=== PATIENT | male | born 2000 | race Caucasian/White ===

== ENCOUNTER 2024-05-13 13:45 | Emergency (ER) | payer OTHER, SELFPAY ==
[2024-05-13 14:05] VITALS: BP 151/86; PULSE 72; RESP 16; TEMP 37.1; O2SAT 100; BMI 31.1
--- NOTE | 2024-05-13 16:31 | ED_ITS ---
HPI - Syncope <Sterling Heart PA-C - Last Filed: 05/13/24 18:10> General Chief Complaint: Dizziness Stated Complaint: heat illness Time Seen by Provider: 05/13/24 16:18 Source: patient Mode of arrival: Ambulatory History of Present Illness HPI narrative: This is a 23-year-old male presents emergency department due to heat related complaints. Patient reports feeling hot and sweaty, mildly confused, and had a syncopal episode. He states he is felt dehydrated. He states he has been taking in an adequate amount of liquid intake. Denies any current chest pain or shortness of breath fevers or abdominal pain. Reports some weakness as well as lightheadedness. Does not report any significant pain anywhere. Related Data Allergies Allergy/AdvReac Type Severity Reaction Status Date / Time No Known Drug Allergies Allergy Verified 05/13/24 14:09 Review of Systems <MARA Brennan Last Filed: 05/13/24 18:10> Review of Systems Narrative: GENERAL: Denies chills, fatigue, malaise, fever, sweats. HEENT: Denies sinus pain, ear pain, sore throat, difficulty swallowing, dizziness. RESPIRATORY: Denies dyspnea, cough, wheezing, hemoptysis, sputum. CARDIOVASCULAR: Denies chest pain, palpitations, orthopnea, edema, GASTROINTESTINAL: Denies nausea, vomiting, abdominal pain, diarrhea, constipation, melena. : Denies dysuria, frequency, incontinence, hematuria, urinary retention. MUSCULOSKELETAL: denies weakness, joint pain, or bony pain SKIN: Denies rash, skin lesions, or other NEUROLOGIC: Reports weakness, denies headache, numbness, change in speech, confusion, seizures, incoordination. PSYCHIATRIC: No concerning psychosocial issues. 12 point review of systems is negative except for those stated above Patient History <MARA Brennan Last Filed: 05/13/24 18:10> Social History Smoking Status: Never smoker Smoking Status: Never smoker Substance Use Type: marijuana Exam <MARA Brennan Last Filed: 05/13/24 18:10> Narrative Exam Narrative: GENERAL: Well-developed patient, in mild distress. HEAD: Atraumatic. Normocephalic. EYES: Pupils equal round and reactive. Extraocular motions intact. No scleral icterus. No injection or drainage. ENT: Nose without bleeding, purulent drainage. Throat without erythema, tonsillar hypertrophy or exudate. Airway patent. NECK: Trachea midline. Non tender EXTREMITIES: No edema or joint tenderness. NEURO: AOx3. SKIN: No rash or erythema of visible areas Initial Vital Signs Initial Vital Signs: Vital Signs Temperature 98.7 F 05/13/24 14:05 Pulse Rate 72 05/13/24 14:05 Respiratory Rate 16 05/13/24 14:05 Blood Pressure 151/86 H 05/13/24 14:05 Pulse Oximetry 100 05/13/24 14:05 Oxygen Delivery Method Room Air 05/13/24 14:05 <Suha Costello DO - Last Filed: 05/14/24 10:21> Initial Vital Signs Initial Vital Signs: Vital Signs Temperature 98.7 F 05/13/24 14:05 Pulse Rate 72 05/13/24 14:05 Respiratory Rate 16 05/13/24 14:05 Blood Pressure 151/86 H 05/13/24 14:05 Pulse Oximetry 100 05/13/24 14:05 Oxygen Delivery Method Room Air 05/13/24 14:05 Course <Sterling Heart PA-C - Last Filed: 05/13/24 18:10> Orders Ordered: Discontinued Medications Sodium Chloride (Normal Saline 0.9%) 1,000 mls @ 1,000 mls/hr IV BOLUS ONE Stop: 05/13/24 17:35 Last Infusion: 05/13/24 18:09 Dose: Infused Documented By: Admin: 05/13/24 17:16 Dose: 1,000 mls/hr Documented By: RB Vital Signs Vital signs: Vital Signs - 8 hr 05/13/24 14:05 Temperature 98.7 F Pulse Rate 72 Respiratory Rate 16 Blood Pressure 151/86 H Pulse Oximetry 100 Oxygen Delivery Method Room Air <Suha Costello DO - Last Filed: 05/14/24 10:21> Orders Ordered: Discontinued Medications Sodium Chloride (Normal Saline 0.9%) 1,000 mls @ 1,000 mls/hr IV BOLUS ONE Stop: 05/13/24 17:35 Last Infusion: 05/13/24 18:09 Dose: Infused Documented By: Admin: 05/13/24 17:16 Dose: 1,000 mls/hr Documented By: RB Vital Signs Vital signs: Vital Signs - 8 hr 05/13/24 14:05 Temperature 98.7 F Pulse Rate 72 Respiratory Rate 16 Blood Pressure 151/86 H Pulse Oximetry 100 Oxygen Delivery Method Room Air MDM - Syncope <Sterling Heart PA-C - Last Filed: 05/13/24 18:10> Lab Data 05/13/24 17:00 05/13/24 17:00 Labs: Lab Results 05/13/24 Range/Units 17:00 WBC 5.2 (4.5-11.0) X10^3/uL RBC 4.54 (4.5-5.9) X10^6/uL Hgb 13.4 L (13.5-17.5) g/dL Hct 39.1 L (41-53) % MCV 86.1 (80-100) fL MCH 29.6 (26-34) PG MCHC 34.3 (30-36) % RDW 12.5 (11.6-14.8) % Plt Count 187 (150-400) X10^3/uL Neut % (Auto) 58.6 (50-75) % Lymph % (Auto) 30.7 (25-40) % Kinney % (Auto) 8.8 (3-14) % Eos % (Auto) 0.7 L (2-4) % Baso % (Auto) 1.2 (0-2) % Neut # (Auto) 3000 (2609-9705) /uL Lymph # (Auto) 1600 (9166-8720) /uL Kinney # (Auto) 500 (0-900) /uL Eos # (Auto) 0 (0-450) /uL Baso # (Auto) 100 (0-100) /uL Sodium 139 (137-145) mmol/L Potassium 3.8 (3.4-5.1) mmol/L Chloride 107 (98-107) mmol/L Carbon Dioxide 25 (22-32) mmol/L BUN 12 (9-20) mg/dL Creatinine 0.92 (0.66-1.25) mg/dL Estimated GFR > 60 (>60) mL/min BUN/Creatinine Ratio 13.0 (6-22) Glucose 81 (70-100) mg/dL Calcium 9.4 (8.4-10.2) mg/dL Total Bilirubin 0.7 (0.2-1.3) mg/dL AST 40 (17-59) IU/L ALT 32 (<50) IU/L Alkaline Phosphatase 48 (38-126) U/L Total Protein 7.8 (6.3-8.2) g/dL Albumin 4.8 (3.5-5.0) g/dL Globulin 3.0 (1.7-4.1) g/dL Albumin/Globulin Ratio 1.6 (1.0-2.8) MDM Narrative Medical decision making narrative: ED course: This is a 23-year-old male presents to the emergency department due to mild heat exhaustion. His lab work was unremarkable, no electrolyte abnormalities. Patient was given a L of fluids. He had not present with any signs or symptoms of heat stroke. Temperature was within normal limits upon arrival to the emergency department. CC: Heat exhaustion Complicating co-morbidities: None Data collected from: Previous notes Medical records reviewed: Patient was not been to this emergency department the past Differential considered, but not limited to: He was often, he was stroke, electrolyte abnormality Exam documented above, pertinent findings include: No remarkable findings Lab Test results independently reviewed as above. Pertinent findings: CBC and CMP unremarkable Imaging studies independently reviewed: None obtained Scores Used: None MIPS Elements: None Consultations: None Treatments: L of fluids Re-evaluations: None Discussion: Discussed plan with the patient was comfortable with the plan Diagnosis: Heat exhaustion Disposition: see below, along with detailed discharge instructions that have been reviewed with patient as well as indications for ED re-evaluation and additional outpatient follow up <Suha Costello, - Last Filed: 05/14/24 10:21> Lab Data Labs: Lab Results 05/13/24 Range/Units 17:00 WBC 5.2 (4.5-11.0) X10^3/uL RBC 4.54 (4.5-5.9) X10^6/uL Hgb 13.4 L (13.5-17.5) g/dL Hct 39.1 L (41-53) % MCV 86.1 (80-100) fL MCH 29.6 (26-34) PG MCHC 34.3 (30-36) % RDW 12.5 (11.6-14.8) % Plt Count 187 (150-400) X10^3/uL Neut % (Auto) 58.6 (50-75) % Lymph % (Auto) 30.7 (25-40) % Kinney % (Auto) 8.8 (3-14) % Eos % (Auto) 0.7 L (2-4) % Baso % (Auto) 1.2 (0-2) % Neut # (Auto) 3000 (5245-4340) /uL Lymph # (Auto) 1600 (3200-9810) /uL Kinney # (Auto) 500 (0-900) /uL Eos # (Auto) 0 (0-450) /uL Baso # (Auto) 100 (0-100) /uL Sodium 139 (137-145) mmol/L Potassium 3.8 (3.4-5.1) mmol/L Chloride 107 (98-107) mmol/L Carbon Dioxide 25 (22-32) mmol/L BUN 12 (9-20) mg/dL Creatinine 0.92 (0.66-1.25) mg/dL Estimated GFR > 60 (>60) mL/min BUN/Creatinine Ratio 13.0 (6-22) Glucose 81 (70-100) mg/dL Calcium 9.4 (8.4-10.2) mg/dL Total Bilirubin 0.7 (0.2-1.3) mg/dL AST 40 (17-59) IU/L ALT 32 (<50) IU/L Alkaline Phosphatase 48 (38-126) U/L Total Protein 7.8 (6.3-8.2) g/dL Albumin 4.8 (3.5-5.0) g/dL Globulin 3.0 (1.7-4.1) g/dL Albumin/Globulin Ratio 1.6 (1.0-2.8) Discharge Plan Departure Patient Disposition: Home Clinical Impression: Heat exhaustion Activity Restrictions/Additional Instructions: Thank you for coming to the [facility] Emergency Department today. As we discussed you may have mild heat exhaustion. Please continue getting plenty of hydration and rest with a lot of electrolyte containing fluids. Please return to the emergency department if you develop any significant altered mental status, seizures, or any other concerning signs or symptoms. I hope you feel better soon. Please follow up with your primary care provider within a week if your symptoms continue. If you do not have a primary care provider please contact the [facility] Resource line at [phone]. They will ask some questions about your medical history and help you get set up with a provider in the community. Stand Alone Forms: Patient Portal/API ED Sign-out <Suha Costello DO - Last Filed: 05/14/24 10:21> Cosign ED Attending Van Attestation: I was immediately available in the department for consultation.
[2024-05-13 17:12] LABS: Add Manual Diff / Slide Review NO; Basophils Absolute Auto 100 /uL (0-100); Basophils Percent Auto 1.2 % (0-2); Eosinophils Absolute Auto 0 /uL (0-450); Eosinophils Percent Auto 0.7 % (2-4); Hematocrit 39.1 % (41-53); Hemoglobin 13.4 g/dL (13.5-17.5); Lymphocytes Absolute Auto 1600 /uL (1100-4500); Lymphocytes Percent Auto 30.7 % (25-40); Mean Corpuscular HGB Conc 34.3 % (30-36); Mean Corpuscular Hemoglobin 29.6 PG (26-34); Mean Corpuscular Volume 86.1 fL (80-100); Monocytes Absolute Auto 500 /uL (0-900); Monocytes Percent Auto 8.8 % (3-14); Neutrophils Absolute Auto 3000 /uL (1500-7000); Neutrophils Percent Auto 58.6 % (50-75); Platelet Count 187 X10^3/uL (150-400); Red Blood Cell Count 4.54 X10^6/uL (4.5-5.9); Red Cell Distribution Width 12.5 % (11.6-14.8); White Blood Cell Count 5.2 X10^3/uL (4.5-11.0)
[2024-05-13] MEDS: SODIUM CHLORIDE 0.9% 1,000 ML 1000 ML IV (17:16)
[2024-05-13 17:23] LABS: Alanine Aminotransferase 32 IU/L (<50); Albumin 4.8 g/dL (3.5-5.0); Albumin Globulin Ratio 1.6 (1.0-2.8); Alkaline Phosphatase 48 U/L (38-126); Aspartate Aminotransferase 40 IU/L (17-59); Bilirubin Total 0.7 mg/dL (0.2-1.3); Blood Urea Nitrogen 12 mg/dL (9-20); Calcium 9.4 mg/dL (8.4-10.2); Carbon Dioxide 25 mmol/L (22-32); Chloride 107 mmol/L (98-107); Estimated Glomerular Filt Rate > 60 mL/min (>60); Glucose 81 mg/dL (70-100); HEMOLYSIS < 15 (0-50); Potassium 3.8 mmol/L (3.4-5.1); Sodium 139 mmol/L (137-145); Total Protein 7.8 g/dL (6.3-8.2)
[2024-05-13 18:15] VITALS: BP 149/76; PULSE 82; RESP 18; TEMP 36.6; O2SAT 99
== END 2024-05-13 18:16 | disposition home or self-care (01) ==
PROVIDERS: Emergency Provider Physician Assistant Medical
DX: T67.5XXA Heat exhaustion, unspecified, initial encounter (principal); X30.XXXA Exposure to excessive natural heat, initial encounter; Y99.0 Civilian activity done for income or pay
CPT/HCPCS: 36415; 80053; 85025; 96360; 99283; 99284